=== PATIENT | female | born 1975 | race Caucasian/White ===

== ENCOUNTER 2020-05-20 01:20 | Emergency (ER) | payer OTHER, SELFPAY ==
--- NOTE | ~2020-05-20 | CT_ITS ---
EXAMINATION: CT brain wo con DATE: 05/20/2020 02:44 INDICATION: Posterior hematoma TECHNIQUE: Computed tomography (CT) of the head was performed without intravenous contrast. The mA wa s adjusted according to patient size. Iterative reconstruction technique was employed. Exam dose: 60 5.33 mGy-cm total exam DLP. COMPARISON: None FINDINGS: Left posterior parietal cephalohematoma. No skull fracture is evident. No intracranial mass lesion or hemorrhage or cerebrovascular accident is evident. No midline shift or mass effect. There is moderate cerebral volume loss. No subdural or epidural hematoma. Included mastoid air cells and paranasal sinuses are normally developed and aerated. IMPRESSION: Left posterior parietal cephalohematoma; no skull fracture or acute intracranial finding Reviewed, dictated and finalized at [facility] Reviewed, dictated and finalized at [facility]. IMPRESSION: Left posterior parietal cephalohematoma; no skull fracture or acut e intracranial finding
[2020-05-20 01:19] VITALS: BP 132/97; PULSE 83; RESP 16; TEMP 36.6; O2SAT 100
--- NOTE | 2020-05-20 01:50 | ED.HEATRA ---
HPI - Head Injury General Chief complaint: Head Injury Stated complaint: fall from bed hematoma to head Time Seen by Provider: 05/20/20 01:27 Source: patient Mode of arrival: EMS Limitations: no limitations History of Present Illness HPI Narrative: This patient is a 44 year old female who presents for evaluation of a head injury. Patient states she was rolling over in bed , and she accidentally fell off the bed striking the back of her head on wood floor. She reports a large hematoma and alot of blood in her hair. She denies dizziness, nausea, or vomiting. She does have a headache. She denies taking anticoagulation. Related Data Home Medications Medication Instructions Recorded Confirmed paroxetine HCl mg PO 05/20/20 Allergies Allergy/AdvReac Type Severity Reaction Status Date / Time Penicillins Allergy Unknown rash Verified 10/21/18 17:12 Review of Systems Review of Systems: All systems reviewed & are unremarkable except as noted in HPI and below Constitutional: Constitutional: Denies chills and Denies fever(s) Cardiovascular: Cardiovascular: Denies chest pain Neurologic: Denies dizziness, Reports headache(s) and Denies focal weakness [facility] Past Medical History Medical History (Updated 05/20/20 @ 03:32 by Darlene Saeed MD) Polycystic kidney disease Surgical History Surgical History (Updated 05/20/20 @ 01:53 by Darlene Saeed MD) History of cholecystectomy Social History Social History (Updated 05/20/20 @ 01:53 by Darlene Saeed MD) Smoking status: Never smoker Substance use: never Exam Const: General: no acute distress and alert Orientation/consciousness: patient oriented x3 HENMT: Head: other (left posterior scalp hematoma with 4 cm laceration, no active bleeding) Ears: TM's normal bilaterally Face and sinus: face symmetric Throat: posterior oropharynx normal and tonsils normal Eyes: EOM: EOMs intact bilaterally Resp: Effort & Inspection: normal respiratory effort and no retractions Auscultation: clear to auscultation bilaterally Cardio: Rate: regular rate Rhythm: regular rhythm Heart sounds: no murmurs GI: GI Palp: Yes Soft to palpation, No Tenderness to palpation present (GI), No Guarding due to palpation present (GI) and No Rigid due to palpation Neuro: General: patient oriented x3 and moves all extremities Course Vital Signs Vital signs: Vital Signs Temperature 97.8 F 05/20/20 01:19 Pulse Rate 83 05/20/20 01:19 Respiratory Rate 16 05/20/20 01:19 Blood Pressure 132/97 H 05/20/20 01:19 Pulse Oximetry 100 05/20/20 01:19 Temperature 97.9 F 05/20/20 03:55 Pulse Rate 80 05/20/20 03:55 Respiratory Rate 18 05/20/20 03:55 Blood Pressure 133/86 05/20/20 03:55 Pulse Oximetry 100 05/20/20 03:55 Procedures Laceration Laceration 1: Date: 05/20/20 Time: 03:30 Site: scalp (left posterior scalp) Description: linear Local Anesthetic: lidocaine 1% and with epi Amount of anesthesia used (mL): 4 Pre-repair: irrigated ====== Skin Level ====== Skin layer closed with: gail Number of sutures: 8 ====== Subcutaneous Layer ====== ====== Muscle Layer ====== ====== Tendon Layer ====== MDM - Head Injury Imaging Data Radiologist's impression: CT head Impression: No hemorrhage, hydrocephalus, mass effect, or herniation Bones: No acute calvarial fracture Posterior scalp soft tissue hematoma Discharge Plan Discharge Clinical Impression: Traumatic hematoma of scalp Qualifiers: Encounter type: initial encounter Qualified Code(s): S00.03XA - Contusion of scalp, initial encounter Laceration of scalp Qualifiers: Encounter type: initial encounter Qualified Code(s): S01.01XA - Laceration without foreign body of scalp, initial encounter Patient Disposition: Home, Self-Care Condition: Stable Instructions: Antibiotic Form, Lacerati
[2020-05-20] MEDS: HYDROGEN PEROXIDE 3% SOLN(*SP) 473 ML BOTTLE (02:07)
--- NOTE | 2020-05-20 02:08 | PC.NURSE ---
wound/scalp-hair washed/cleansed with Hydrogen peroxide/water---patient tolerated well. Uncovered laceration to occipital area
[2020-05-20] MEDS: LIDO 1%/EPINEPHRINE 1:100,000 20 ML VIAL INFILTRATE (02:49)
[2020-05-20] MEDS: TETANUS,DIPHTHERIA,AC PERTUSSIS ADULT (0.5 ML) BOOSTRIX IM (02:49)
[2020-05-20 03:55] VITALS: BP 133/86; PULSE 80; RESP 18; TEMP 36.6; O2SAT 100
== END 2020-05-20 03:55 | disposition home or self-care (01) ==
PROVIDERS: Emergency Provider General Practice
DX: S01.01XA Laceration without foreign body of scalp, initial encounter (principal); Q61.3 Polycystic kidney, unspecified; W06.XXXA Fall from bed, initial encounter; Z23 Encounter for immunization
CPT/HCPCS: 12002; 70450; 90471; 90715; 99284; A9270

== ENCOUNTER 2020-05-28 18:23 | Emergency (ER) | payer OTHER, SELFPAY ==
[2020-05-28 18:34] VITALS: BP 138/91; PULSE 84; RESP 18; TEMP 37; O2SAT 100
--- NOTE | 2020-05-28 18:57 | ED.GENADULT ---
HPI - General Adult General Chief complaint: Wound/Laceration Stated complaint: removal of gail Time Seen by Provider: 05/28/20 18:57 Source: patient and RN notes reviewed Mode of arrival: ambulatory Limitations: no limitations History of Present Illness HPI narrative: 44-year-old male presents to have gail removed from the LT parietal scalp area for the past 8 day. Healing wound to LT parietal side of head with [address] No concern for infection of wound. No tenderness, erythema, or swelling to area. No fever or chills. No drainage. No streaking. Claire has been following recent discharge instructions. Denies headache, seizure, syncopal episodes, nausea and vomiting. Remains active. Immunizations up-to-date. The patient reports she have not been diagnosed with COVID-19. The patient reports she is not waiting for the results of a COVID-19 lab test. The patient reports she do not have fever, chills, weakness, or fatigue. The patient reports she do not have a new or worsening cough or shortness of breath. Denies chest pain. The patient reports she do not have any rhinorrhea, congestion, sore throat, loss of taste, nausea, vomiting, abdominal pain, and diarrhea. Tolerating po intake well. Denies recent traveling. Denies concerns for COVID-19 or exposures been home with limited outdoor exposure except for essential household needs, work, and return home. At this time, patient is not suspected of having COVID-19. Some parts of this dictation were generated by voice recognition software and may contain typographical and/or grammatical inaccuracies. Related Data Home Medications Medication Instructions Recorded Confirmed paroxetine HCl 20 mg PO DAILY 05/20/20 05/28/20 buspirone 15 mg PO TID 05/28/20 05/28/20 ferrous sulfate 325 mg PO BID 05/28/20 05/28/20 levothyroxine [Synthroid] 88 mcg PO DAILY 05/28/20 05/28/20 losartan 50 mg PO DAILY 05/28/20 05/28/20 paroxetine HCl 20 mg PO QAM 05/28/20 05/28/20 tolvaptan [Jynarque] 0 ea PO PER PKG DIR 05/28/20 05/28/20 trazodone 150 mg PO HS 05/28/20 05/28/20 Allergies Allergy/AdvReac Type Severity Reaction Status Date / Time Penicillins Allergy Unknown rash Verified 05/28/20 19:04 Review of Systems Review of Systems: Narrative: CONSTITUTIONAL: Denies fever, chills, sweats. EYES: Denies visual changes, redness, discharge. ENT: Denies rhinorrhea, congestion, sore throat, otalgia. CARDIOVASCULAR: Denies chest pain, palpitations, edema. RESPIRATORY: Denies dyspnea, wheezing, cough. GASTROINTESTINAL: Denies abdominal pain, nausea, vomiting, diarrhea. SKIN: Denies rash or itching. Complains of needing gail removed from left parietal area. MUSCULOSKELETAL: Denies acute back pain, joint pain, or myalgia. NEUROLOGIC: Denies numbness or focal weakness. PSYCHIATRIC: Denies anxiety or depression. All other systems reviewed are negative, except as documented in HPI and below. [facility] Past Medical History Medical History (Updated 05/29/20 @ 00:00 by Pao Liu) Anxiety Depression Hypertension Hypothyroidism Polycystic kidney disease Somnambulism Surgical History Surgical History (Updated 05/28/20 @ 19:32 by FLEX Ardon) History of cholecystectomy History of rhinoplasty Family History Family History (Updated 05/28/20 @ 19:33 by FLEX Ardon) Father Hypertension Mother Hypertension Social History Social History (Updated 05/28/20 @ 19:33 by FLEX Ardon) Smoking status: Never smoker Tobacco type: cigarettes Second hand tobacco smoke exposure: No Alcohol intake: current Substance use: never Living arrangements: with family Occupation/Education: occupation Gender identity (if verbalized by the patient): Female Sexual Orientation (if Verbalized by the Patient): Straight or Heterosexual Comments At time of signature, agree with nurse past medical, surgical, social, and family history.
== END 2020-05-28 19:08 | disposition home or self-care (01) ==
PROVIDERS: Emergency Provider Nurse Practitioner Family
DX: S01.01XD Laceration without foreign body of scalp, subsequent encounter (principal); X58.XXXD Exposure to other specified factors, subsequent encounter; F41.9 Anxiety disorder, unspecified; F32.9 Major depressive disorder, single episode, unspecified; I10 Essential (primary) hypertension; E03.9 Hypothyroidism, unspecified; E28.2 Polycystic ovarian syndrome
CPT/HCPCS: 99211; G0463

== ENCOUNTER 2022-07-10 10:56 | Emergency (ER) | payer OTHER, SELFPAY ==
--- NOTE | 2022-07-10 11:06 | ED.URI ---
HPI - URI/Sore Throat General Chief Complaint: Upper Respiratory Infection Stated Complaint: cough, weakness, fatigue, Time Seen by Provider: 07/10/22 11:06 Source: patient and RN notes reviewed History of Present Illness HPI Narrative: Patient is a 46-year-old female who presents to urgent care with complaints of cough and fatigue. Patient states it started Thursday and she has also had some sinus congestion. Patient tested herself at home and it was negative for COVID. Patient is also reported a fever last night. Patient has not taken anything [id number] for her symptoms. no other acute complaints. No acute distress noted. Patient aware of the plan of care. Some parts of this dictation were generated by voice recognition software and may contain typographical and/or grammatical inaccuracies. Related Data Home Medications Medication Instructions Recorded Confirmed buspirone 15 mg tablet 15 mg PO TID 05/28/20 07/10/22 ferrous sulfate 325 mg (65 mg 325 mg PO BID 05/28/20 07/10/22 iron) tablet levothyroxine 88 mcg tablet 88 mcg PO DAILY 05/28/20 07/10/22 (Synthroid) losartan 50 mg tablet 50 mg PO DAILY 05/28/20 07/10/22 paroxetine HCl 20 mg tablet 20 mg PO QAM 05/28/20 07/10/22 tolvaptan (polycys kidney dis) 45 0 ea PO PER PKG DIR 05/28/20 07/10/22 mg (AM)/15 mg (PM) tablets (Jynarque) trazodone 150 mg tablet 150 mg PO HS 05/28/20 07/10/22 Allergies Allergy/AdvReac Type Severity Reaction Status Date / Time Penicillins Allergy Unknown rash Verified 07/10/22 11:28 Review of Systems Review of Systems: CONSTITUTIONAL: Denies fever, chills, or sweats. EYES: Denies visual changes, redness, or discharge. ENT: reports of sinus congestion CARDIOVASCULAR: Denies chest pain, palpitations, or edema. RESPIRATORY: reports of cough without dyspnea GASTROINTESTINAL: Denies abdominal pain, nausea, vomiting, or diarrhea. GENITOURINARY: Denies dysuria or hematuria. SKIN: Denies rash or itching. MUSCULOSKELETAL: Denies back pain, joint pain, or myalgia. NEUROLOGIC: Denies headache, numbness, or weakness. All other systems reviewed are negative, except as documented in HPI. [facility] Past Medical History Medical History (Updated 07/10/22 @ 11:42 by FLEX Vivar) Anxiety Depression Hypertension Hypothyroidism Polycystic kidney disease Somnambulism Surgical History Surgical History (Updated 05/28/20 @ 19:32 by FLEX Ardon) History of cholecystectomy History of rhinoplasty Family History Family History (Updated 05/28/20 @ 19:33 by FLEX Ardon) Father Hypertension Mother Hypertension Social History Social History (Updated 05/28/20 @ 19:33 by FLEX Ardon) Smoking status: Never smoker Tobacco type: cigarettes Second hand tobacco smoke exposure: No Alcohol intake: current Alcohol use details: occasional Substance use: never Gender identity (if verbalized by the patient): Female Sexual Orientation (if Verbalized by the Patient): Straight or Heterosexual Comments At the time of my signature, I reviewed and agree with the nursing past medical, surgical, social, and family history. There is no relevant family history pertinent to the patient complaint. Exam Narrative: GENERAL: This is a well-nourished, well-developed patient, in no apparent distress. HEAD: normocephalic, atraumatic. EYES: PERRL. Sclera clear/white. Vision is grossly intact. EARS: External ears normal, auditory canals clear and without drainage, TMs normal without perforation. Hearing grossly intact. NOSE: External nose normal with no obvious nasal discharge, nares without redness, clear rhinorrhea. THROAT: Mucous membranes moist, posterior pharynx clear. moderate postnasal drainage NECK: Neck supple, non-tender without lymphadenopathy CARDIOVASCULAR: Regular rate and rhythm without murmurs, gallops, or rubs. RESPIRATORY: Clear to auscultation. Breath sounds equal
[2022-07-10 11:15] VITALS: BP 125/104; PULSE 88; RESP 20; TEMP 36.9; O2SAT 100
== END 2022-07-10 11:45 | disposition home or self-care (01) ==
PROVIDERS: Emergency Provider Nurse Practitioner Family
DX: J06.9 Acute upper respiratory infection, unspecified (principal); I10 Essential (primary) hypertension; E03.9 Hypothyroidism, unspecified; Q61.3 Polycystic kidney, unspecified; F41.9 Anxiety disorder, unspecified; F32.A Depression, unspecified
CPT/HCPCS: 87804; 99213; G0463

== ENCOUNTER → 2022-08-05 16:02 | Outpatient (CLI) | payer OTHER, SELFPAY ==
--- NOTE | ~2022-08-05 | MM_ITS ---
EXAMINATION: MM screening genesis BI w cathy HISTORY: Screening mammogram TECHNIQUE: Craniocaudal and mediolateral oblique 3-D tomosynthesis images were obtained and synthetic 2-D images were generated. CAD analysis was submitted and interpreted. COMPARISON: No prior mammogram is available for comparison at this institution. BREAST PARENCHYMAL COMPOSITION: There are scattered areas of fibroglandular density. FINDINGS: RIGHT BREAST: An asymmetry is present in the middle third of inner breast on the craniocaudal view.. LEFT BREAST: Focal asymmetry is present in the middle third of the lower inner breast. IMPRESSION: 1. Bilateral breast findings as described above which may represent the patient's baseline however no comparison is currently available. 2. Comparison with prior mammograms is necessary. BI-RADS Category 0: Incomplete: Needs comparison with prior mammograms. Reviewed, dictated and finalized at [facility]. OPSYCHIATRIST IMPRESSION: 1. Bilateral breast findings as described above which may represent the patient 's baseline however no comparison is currently available. 2. Comparison with prior mammograms is necessary. BI-RADS Category 0: Incomplete: Needs comparison with prior mammograms.
== END ==
PROVIDERS: Visit Provider Internal Medicine
DX: Z12.31 Encounter for screening mammogram for malignant neoplasm of breast (principal); R92.8 Other abnormal and inconclusive findings on diagnostic imaging of breast
CPT/HCPCS: 77063; 77067

== ENCOUNTER → 2022-09-03 07:43 | Outpatient (CLI) | payer OTHER, SELFPAY ==
--- NOTE | ~2022-09-03 | MM_ITS ---
CORRECTED REPORT ORDER # [id number] 09/04/2022 [facility] EXAMINATION: MM diagnostic genesis BI w cathy HISTORY: Asymmetry of the left breast and right breast asymmetry on screening mammogram. TECHNIQUE: Additional 3-D tomosynthesis images of the breasts were performed and synthetic 2-D images were generated. CAD analysis was submitted and interpreted. COMPARISON: 08/05/2022, 03/20/2021 10/04/2019 FINDINGS: There is a return to baseline fibroglandular appearance with spot compression of the breasts in the areas questioned on screening mammogram. IMPRESSION: 1. No mammographic evidence of malignancy. 2. Recommend routine screening mammography in one year. BI-RADS Category 1: Negative Reviewed, dictated and finalized at [facility]. [employer] [facility]
== END ==
DX: R92.8 Other abnormal and inconclusive findings on diagnostic imaging of breast (principal)
CPT/HCPCS: 77062; 77066; G0279